=== PATIENT | male | born 1965 | race Caucasian/White ===

== ENCOUNTER 2016-04-25 08:20 | Day surgery (SDC) | payer OTHER ==
[2016-04-24 15:05] VITALS: BMI 24.3
[2016-04-25] MEDS ORDERED: mitoMYcin 40 MG/50 ML DISP.SYRIN (FOR OR USE) IC ONE (10:00)
[2016-04-25] MEDS ORDERED: MIDAZOLAM HCL 2 MG/2 ML SINGLE DOSE VIAL ONE (11:20)
[2016-04-25] MEDS ORDERED: PROPOFOL 20 ML ONE (11:20)
[2016-04-25] MEDS ORDERED: ceFAZolin SODIUM 1 GM VIAL IVPB ONE (11:34)
[2016-04-25] MEDS ORDERED: ceFAZolin SODIUM 1 GM VIAL ONE (11:36)
[2016-04-25] MEDS ORDERED: DEXAMETHASONE SOD PHOSPHATE 4 MG/1 ML VIAL ONE (11:42)
[2016-04-25] MEDS ORDERED: LIDOCAINE HCL 2% JELLY 10 ML CARTRIDGE TP ONE (11:50)
[2016-04-25] MEDS ORDERED: LIDOCAINE HCL 2% JELLY 10 ML CARTRIDGE ONE (11:57)
[2016-04-25] MEDS ORDERED: oxyCODONE HCL 5 MG TABLET PO PRN (12:04)
--- NOTE | 2016-04-25 12:04 | OP ---
Operative Note - Note: Operative Date: 04/25/16 Pre-Operative Diagnosis: bladder tumor-overlapping sites Operation: TURBT Findings: multiple papillar tumors Post-Operative Diagnosis: Same as Pre-op Surgeon: Angel Akers Anesthesia: General Specimens Removed: bladder tumor Drains & Tubes with Location: 20fr ignacio Operative Report Dictated: Yes
[2016-04-25] MEDS ORDERED: DEXTROSE 5%-0.45% SALINE 1,000 ML IV SCH (12:15)
[2016-04-25] MEDS ORDERED: ONDANSETRON 4 MG/2 ML VIAL IVPUSH PRN (12:34)
--- NOTE | 2016-04-25 12:39 | OP ---
DATE OF OPERATION: PREOPERATIVE DIAGNOSIS: Bladder tumor. POSTOPERATIVE DIAGNOSIS: Bladder tumor. PROCEDURE: Transurethral resection of bladder tumor followed by intravesical instillation of Mitomycin-C. SURGEON: Meg Montalvo MD INDICATION: The patient is a 50-year-old male with a history of recurrent bladder tumors. Recent revealed recurrence of several papillary tumors at the trigone, posterior wall, anterior wall so he was taken to the OR for resection. DESCRIPTION OF PROCEDURE: The patient was taken to the OR and placed supine on the operating room table. Cardiac monitoring was administered. General anesthesia was established. He was prepped and draped in the dorsal lithotomy position. The meatus was a little bit narrowed and required dilation with sounds in order to be able to advance a 24-sheath resectoscope with a visual obturator. After dilation, the scope was advanced into the anterior urethra then to the prostatic urethra into the bladder. Several papillary tumors were noted at the trigone, posterior wall, anterior wall, several on the anterior wall. These were resected in their entirety and sent to pathology for analysis. The base of all of the tumors were fulgurated. No other tumors were noted. Bilateral ureteral orifices were seen in their normal anatomic position with clear efflux. With all of the tumor removed now, resectoscope was then removed, and a 20-Sami Hernandez was then placed to straight drainage. Clear urine was retrieved. Then 40 mg of Mitomycin was instilled and the catheter clamped, and the patient was then transferred to the recovery room in stable condition. There were no complications. Estimated blood loss minimal. The plan is to unclamp the Hernandez after 1 hour in the recovery room. MEG MONTALVO M.D. [id number]
[2016-04-25] MEDS ORDERED: LACTATED RINGERS SOLUTION 1,000 ML IV SCH (12:45)
[2016-04-25 14:42] VITALS: TEMP 97.5
[2016-04-25 15:18] VITALS: BP 110/80; PULSE 60
== END 2016-04-25 14:55 | disposition home or self-care (01) ==
LOC: JASU-SURG 08:20
PROVIDERS: ATTEND Urology
PROC: 0TBB8ZZ Excision of Bladder, Via Natural or Artificial Opening Endoscopic (ICD-10-PCS; principal; 2016-04-25 10:00)
DX: D41.4 Neoplasm of uncertain behavior of bladder (principal)
CPT/HCPCS: 51720; 52224; J9280; 88307-TC; 94760

== ENCOUNTER 2018-02-19 07:27 | Day surgery (SDC) | payer OTHER ==
[2018-02-17 14:19] VITALS: BMI 23.7
[2018-02-19] MEDS ORDERED: MIDAZOLAM HCL 2 MG/2 ML SINGLE DOSE VIAL ONE (08:54)
[2018-02-19] MEDS ORDERED: PROPOFOL 20 ML ONE (08:58)
[2018-02-19] MEDS ORDERED: SUCCINYLCHOLINE CHLORIDE 200 MG/10 ML VIAL ONE (09:00)
[2018-02-19] MEDS ORDERED: ceFAZolin SODIUM 1 GM VIAL IVPB ONE (09:02)
[2018-02-19] MEDS ORDERED: oxyCODONE HCL 5 MG TABLET PO PRN ×2 (09:38→17:00)
--- NOTE | 2018-02-19 09:43 | OP ---
Operative Note - Note: Operative Date: 02/19/18 Pre-Operative Diagnosis: bladder tumor Operation: TURBT Post-Operative Diagnosis: Same as Pre-op Surgeon: Angel Akers Anesthesia: General Specimens Removed: bladder tumor Estimated Blood Loss (mls): 2 Operative Report Dictated: Yes
[2018-02-19] MEDS ORDERED: PROMETHAZINE HCL 25 MG/1 ML VIAL IVPUSH PRN (09:45)
[2018-02-19] MEDS ORDERED: ONDANSETRON 4 MG/2 ML VIAL IVPUSH PRN (09:45)
[2018-02-19] MEDS ORDERED: LACTATED RINGERS SOLUTION 1,000 ML IV SCH (09:45)
[2018-02-19] MEDS ORDERED: ELECTROLYTE-148 SOLN 1,000 ML IV SCH (09:45)
--- NOTE | 2018-02-19 10:42 | OP ---
DATE OF OPERATION: 02/19/2018 PREOPERATIVE DIAGNOSIS: Bladder tumor. POSTOPERATIVE DIAGNOSIS: Bladder tumor. PROCEDURE: Transurethral resection of bladder tumor. SURGEON: Angel Akers MD INDICATION: Patient is a 52-year-old male with a history of recurrent bladder tumors. Recent cystoscopy revealed evidence of bladder tumor on the posterior and left lateral wall. He is taken to the OR for resection of the tumor. Patient was taken to the OR, placed supine on the table. After cardiac monitoring administered general anesthesia was established. He was prepped and draped in dorsal supine position. The 26 sheath resectoscope was inserted into the urethra without difficulty. Anterior urethra was normal. Prostatic urethra was 3 cm, nonocclusive. The bladder was visualized. Erythematous lesions were noted at the posterior wall and left lateral wall. These were resected in their entirety and handed to Pathology for analysis. No other lesions were noted. Bilateral ureteral orifices were seen in their normal anatomic position. Resectoscope was then removed and an 18-E[place] Hernandez was then placed to straight drainage. [place]-tinged urine was retrieved. Patient was awoken from anesthesia and transferred to recovery in stable condition. There were no complications. Estimated blood loss was minimal. Veronica [id number]
[2018-02-19 12:38] VITALS: BP 132/64; PULSE 50; TEMP 97.4
--- NOTE | 2018-02-20 16:36 | PATH ---
Surgical Pathology Report Patient Name: DRAKE PINEDA [facility]. Rec. #: [id number] /Age/Gender: 1965 (Age: 52) / M Account: [id number] Location: [facility] SURGICAL Taken: 02/19/2018 Received: 02/19/2018 Reported: 02/20/2018 Physicians: Angel Akers M.D. Specimen(s) Received BLADDER TUMOR Clinical History Bladder tumor Final Diagnosis BLADDER TUMOR, TRANSURETHRAL RESECTION OF BLADDER TUMOR: POLYPOID FRAGMENTS OF BENIGN UROTHELIAL MUCOSA CONSISTENT WITH POLYPOID CYSTITIS. FRAGMENTS OF MUSCULARIS PROPRIA PRESENT. Electronically Signed Ivet Berry M.D. Gross Description Received in formalin labeled "bladder tumor," are 5 pink-kiser soft tissue fragments ranging from 0.2-0.7 cm in greatest dimension. The specimens are submitted in toto in one cassette. /02/19/2018 saudi02/19/2018
== END 2018-02-19 13:15 | disposition home or self-care (01) ==
LOC: JASU-SURG 07:27
PROVIDERS: ATTEND Urology
PROC: 0T5B8ZZ Destruction of Bladder, Via Natural or Artificial Opening Endoscopic (ICD-10-PCS; principal; 2018-02-19 09:00)
DX: N30.80 Other cystitis without hematuria (principal); D30.3 Benign neoplasm of bladder
CPT/HCPCS: 88305-TC; 94760

== ENCOUNTER 2018-09-16 04:04 | Inpatient (IN) | payer OTHER ==
[2018-09-16 05:20] LABS: MEAN PLT VOLUME 8.5 fl (7.5-11.1); RBC 4.85 M/mm3 (4.00-5.60)
[2018-09-16 05:30] LABS: HEMATOCRIT 42.2 % (35.4-49); HEMOGLOBIN 14.6 GM/dL (11.7-16.9); MCH 30.1 pg (25.7-33.7); MCHC 34.6 g/dl (32.0-35.9); MEAN CELL VOLUME 87.2 fl (80-96); PLATELET COUNT 241 K/MM3 (134-434); RDW 13.2 % (11.9-15.9); WHITE BLOOD COUNT 5.2 K/mm3 (4.0-10.0)
[2018-09-16 05:49] LABS: BILIRUBIN,TOTAL 0.3 mg/dL (0.2-1); BLOOD UREA NITROGEN 18.9 mg/dL (7-18); CREATININE 0.8 mg/dL (0.55-1.3); POTASSIUM 4.4 mmol/L (3.5-5.1); TOT PROT 7.3 g/dl (6.4-8.2)
[2018-09-16] MEDS ORDERED: SODIUM CHLORIDE 1,000 ML IV STA (06:35)
[2018-09-16] MEDS ORDERED: ACETAMINOPHEN INJECTION 100 ML IVPB ONE (06:39)
--- NOTE | 2018-09-16 06:39 | PDOC ---
History of Present Illness - History of Present Illness Initial Comments: 09/16/18 06:34 52 yo M with h/o bladder cancer who p/w hematuira, suprapubic pain. Patient reports acute onset of gross bright red urine (09/15/18) at 9 AM, with absent clotting. States that he was urinating every 2 hours at onset, but now every 20 minutes since ED stay. Patient also endorses 2 hours of unremitting sharp suprapubic pain. Reports similar history with onset of bladder cancer x 3 years ago. Denies AC use. Patient denies SHI, vision change, palpitations, cough, wheezing, orthopena, PND , leg swelling/pain, N/V, F,C, CP, SOB, BPR, diarrhea, constipation, lightheadedness, weakness, sensory changes. PMHx: as noted above ROS: as noted SHx: Denies Etoh, IVDA, tobacco use Allergies: NKDA <Juma Fox - Last Filed: 09/16/18 06:51> <Rj Benítez - Last Filed: 09/16/18 09:19> - General Chief Complaint: Hematuria Stated Complaint: BLOOD IN URINE Time Seen by Provider: 09/16/18 05:02 Past History - Past Medical History Anemia: No Asthma: No Cancer: No Cardiac Disorders: No CVA: No COPD: No CHF: No Dementia: No Diabetes: No GI Disorders: No Disorders: No HTN: No Hypercholesterolemia: Yes Liver Disease: No Seizures: No Thyroid Disease: No - Suicide/Smoking/Psychosocial Hx Smoking History: Never smoked Have you smoked in the past 12 months: No Information on smoking cessation initiated: No Hx Alcohol Use: Yes (Occasional) Drug/Substance Use Hx: No Hx Substance Use Treatment: No <Juma Fox - Last Filed: 09/16/18 06:51> <Rj Benítez - Last Filed: 09/16/18 09:19> - Past Medical History Allergies/Adverse Reactions: Allergies Allergy/AdvReac Type Severity Reaction Status Date / Time Iodinated Contrast- Oral and Allergy Severe Swelling Verified 09/16/18 04:57 IV Dye IV CONTRAST Allergy Severe Swelling Uncoded 09/16/18 04:57 Home Medications: Ambulatory Orders NK [No Known Home Medication] 04/24/16 Review of Systems - Review of Systems Comments:: 09/16/18 06:39 GENERAL/CONSTITUTIONAL: No fever or chills. No weakness. HEAD, EYES, EARS, NOSE AND THROAT: No change in vision. No ear pain or discharge. No sore throat. CARDIOVASCULAR: No chest pain or shortness of breath RESPIRATORY: No cough, wheezing, or hemoptysis. GASTROINTESTINAL: No nausea, vomiting, diarrhea or constipation. GENITOURINARY: + Hematuria, increased urination. MUSCULOSKELETAL: No joint or muscle swelling or pain. No neck or back pain. SKIN: No rash NEUROLOGIC: No headache, vertigo, loss of consciousness, or change in strength/ sensation. ENDOCRINE: No increased thirst. No abnormal weight change HEMATOLOGIC/LYMPHATIC: No anemia, easy bleeding, or history of blood clots. ALLERGIC/IMMUNOLOGIC: No hives or skin allergy. <Juma Fox - Last Filed: 09/16/18 06:51> *Physical Exam - Vital Signs Last Vital Signs Temp Pulse Resp BP Pulse Ox 97.8 F 66 17 162/99 99 09/16/18 04:04 09/16/18 04:04 09/16/18 04:04 09/16/18 04:04 09/16/18 04:04 - Physical Exam Comments: 09/16/18 06:38 GENERAL: Awake, alert, and fully oriented, in no acute distress HEAD: No signs of trauma, normocephalic, atraumatic EYES: PERRLA, EOMI, sclera anicteric, conjunctiva clear ENT: Auricles normal inspection, hearing grossly normal, nares patent, oropharynx clear without exudates. Moist mucosa NECK: Normal ROM, supple, no lymphadenopathy, JVD, or masses LUNGS: No distress, speaks full sentences, clear to auscultation bilaterally HEART: Regular rate and rhythm, normal S1 and S2, no murmurs, rubs or gallops, peripheral pulses normal and equal bilaterally. ABDOMEN: Soft, nontender, normoactive bowel sounds. No guarding, no rebound. No masses GENITOURINARY: Absent scrotal skin change, lesions, or testicular ttp. Absent penile discharge or lesions. Absent inguinal lymphadenopathy or bulge. Absent perineum skin change. EXTREMITIES : Normal inspection, Normal range of motion, no edema. No clubbing or cyanosis. NEUROLOGICAL: Cranial nerves II through XII grossly intact. Normal speech, normal gait, no focal sensorimotor deficits SKIN: Warm, Dry, normal turgor, no rashes or lesions noted <Juma Fox - Last Filed: 09/16/18 06:51> - Vital Signs Last Vital Signs Temp Pulse Resp BP Pulse Ox 97.8 F 66 17 162/99 99 09/16/18 04:04 09/16/18 04:04 09/16/18 04:04 09/16/18 04:04 09/16/18 04:04 <Rj Benítez - Last Filed: 09/16/18 09:19> ED Treatment Course - LABORATORY CBC & Chemistry Diagram: 09/16/18 05:11 09/16/18 05:11 - ADDITIONAL ORDERS Additional order review: Laboratory Results 09/16/18 09/16/18 05:11 05:11 Sodium 135 L Potassium 4.4 Chloride 103 Carbon Dioxide 28 Anion Gap 4 L BUN 18.9 H Creatinine 0.8 Est GFR (CKD-EPI)AfAm 119.04 Est GFR (CKD-EPI)NonAf 102.71 Random Glucose 119 H Calcium 9.0 Total Bilirubin 0.3 AST 19 ALT 34 Alkaline Phosphatase 52 Total Protein 7.3 Albumin 4.0 Urine Color Cancelled Urine Appearance Cancelled Urine pH Cancelled Ur Specific [place] Cancelled Urine Protein Cancelled Urine Glucose (UA) Cancelled Urine Ketones Cancelled Urine Blood Cancelled Urine Nitrite Cancelled Urine Bilirubin Cancelled Urine Urobilinogen Cancelled Ur Leukocyte Esterase Cancelled Urine WBC (Auto) Cancelled Urine RBC (Auto) Cancelled Urine Casts (Auto) Cancelled U Pathogenic Cast Auto Cancelled U Epithel Cells (Auto) Cancelled U Sm Round Cell (Auto) Cancelled Urine Crystals (Auto) Cancelled Urine Bacteria (Auto) Cancelled Urine Yeast (Auto) Cancelled 09/16/18 05:11 RBC 4.85 MCV 87.2 MCHC 34.6 RDW 13.2 MPV 8.5 <Juma Fox - Last Filed: 09/16/18 06:51> - LABORATORY CBC & Chemistry Diagram: 09/16/18 05:11 09/16/18 05:11 - ADDITIONAL ORDERS Additional order review: Laboratory Results 09/16/18 09/16/18 09/16/18 06:35 06:35 05:11 PT with INR 10.00 INR 0.85 Sodium Potassium Chloride Carbon Dioxide Anion Gap BUN Creatinine Est GFR (CKD-EPI)AfAm Est GFR (CKD-EPI)NonAf Random Glucose Calcium Total Bilirubin AST ALT Alkaline Phosphatase Total Protein Albumin Urine Color Cancelled Urine Appearance Cancelled Urine pH Cancelled Ur Specific [place] Cancelled Urine Protein Cancelled Urine Glucose (UA) Cancelled Urine Ketones Cancelled Urine Blood Cancelled Urine Nitrite Cancelled Urine Bilirubin Cancelled Urine Urobilinogen Cancelled Ur Leukocyte Esterase Cancelled Urine WBC (Auto) Cancelled Urine RBC (Auto) Cancelled Urine Casts (Auto) Cancelled U Pathogenic Cast Auto Cancelled U Epithel Cells (Auto) Cancelled U Sm Round Cell (Auto) Cancelled Urine Crystals (Auto) Cancelled Urine Bacteria (Auto) Cancelled Urine Yeast (Auto) Cancelled Blood Type A NEGATIVE Antibody Screen Negative 09/16/18 05:11 PT with INR INR Sodium 135 L Potassium 4.4 Chloride 103 Carbon Dioxide 28 Anion Gap 4 L BUN 18.9 H Creatinine 0.8 Est GFR (CKD-EPI)AfAm 119.04 Est GFR (CKD-EPI)NonAf 102.71 Random Glucose 119 H Calcium 9.0 Total Bilirubin 0.3 AST 19 ALT 34 Alkaline Phosphatase 52 Total Protein 7.3 Albumin 4.0 Urine Color Urine Appearance Urine pH Ur Specific [place] Urine Protein Urine Glucose (UA) Urine Ketones Urine Blood Urine Nitrite Urine Bilirubin Urine Urobilinogen Ur Leukocyte Esterase Urine WBC (Auto) Urine RBC (Auto) Urine Casts (Auto) U Pathogenic Cast Auto U Epithel Cells (Auto) U Sm Round Cell (Auto) Urine Crystals (Auto) Urine Bacteria (Auto) Urine Yeast (Auto) Blood Type Antibody Screen 09/16/18 05:11 RBC 4.85 MCV 87.2 MCHC 34.6 RDW 13.2 MPV 8.5 - RADIOLOGY Radiology Studies Ordered: Category Date Time Status CHEST - PA [RAD] Stat Radiology 09/16/18 07:37 Ordered - Medications Given in the ED: ED Medications Discontinued Medications Generic Name Dose Route Start Last Admin Trade Name Freq PRN Reason Stop Dose Admin Acetaminophen 1,000 mg 09/16/18 06:36 09/16/18 06:45 Ofirmev Injection - IVPB 09/16/18 06:37 1,000 mg ONCE ONE Administration Sodium Chloride 1,000 mls @ 1,000 mls/hr 09/16/18 06:35 09/16/18 06:45 Normal Saline - IV 09/16/18 07:34 1,000 mls/hr ASDIR STA Administration Morphine Sulfate 2 mg 09/16/18 08:23 09/16/18 08:25 Morphine Injection - IVPUSH 09/16/18 08:24 2 mg ONCE ONE Administration <Rj Benítez - Last Filed: 09/16/18 09:19> Medical Decision Making - Medical Decision Making 09/16/18 06:37 52 yo M with h/o bladder cancer who p/w hematuira, suprapubic pain beginning 9: 00 PM (09/15/18). BP 162/99, vitals otherwise wnl, AF, A&OX3. Physical exam notable for surpapubic ttp. Patient with unremitting hematuria at bedside. Patient denies AC use. Will evaluate for acute blood loss anemia requiring transfusions. Bleeding likely 2/[address] ignacio, provide adequate analgesic and fluid hydration/control. Plan for admission, CBI. ED Course: Call placed to Dr. Akers answering service Awaiting call back 09/16/18 06:[address] Aceves, agrees with dispo. Plan for CBI if bleeding continously. <Juma Fox - Last Filed: 09/16/18 06:51> *DC/Admit/Observation/Transfer - Discharge Dispostion Decision to Admit order: Yes <Juma Fox - Last Filed: 09/16/18 06:51> - Discharge Dispostion Decision to Admit order: Yes <Rj Benítez - Last Filed: 09/16/18 09:19> Diagnosis at time of Disposition: Hematuria Qualifiers: Hematuria type: gross Qualified Code(s): R31.0 - Gross hematuria - Discharge Dispostion Condition at time of disposition: Fair - Referrals Referrals: Angel Akers MD [Primary Care Provider] - - Patient Instructions - Post Discharge Activity
[2018-09-16] MEDS: ACETAMINOPHEN 1000 MG/100 ML VIAL (NON FORMULARY) IVPB ONE (06:45)
[2018-09-16 07:00] LABS: INR 0.85 (0.83-1.09)
[2018-09-16] MEDS ORDERED: MORPHINE SULFATE 2 MG/ML VIAL ONE (08:19)
[2018-09-16] MEDS ORDERED: morphine CARPU-JECT 2 MG/1 ML DISP.SYRIN IVPUSH ONE (08:23)
--- NOTE | 2018-09-16 08:36 | HP ---
CHIEF COMPLAINT: PCP: Dr. Oliver Nash Urology: Dr. Akers HISTORY OF PRESENT ILLNESS: The patient is a 52 yo m w/ PMH bladder Ca (dx apr 2015), HLD who comes into the ED c/o hematuria. Patient states that at approx. PM yesterday evening, he first noticed blood in his urine. Since this time, hehad been urinating every 2 hours and seeing blood every time. The patient associated this symptom with burning on urination for the same period of time. After arrival in the ED, the patient states that he began to urinate every 20 minutes and developed a constant, sharp suprapubic pain without radiation. The patient states that he had a similar episode in 2015 when he was first diagnosed with bladder cancer. Patient denies fevers, chills, SOB, diarrhea. In the ED, the patient was treated with IV acetaminophen and a [address] catheter was inserted. Urology was consulted from the emergency department. They agreed the with above plan and suggested starting CBI if bleeding persisted. On interview, the patient c/o increased suprapubic pain. Palpation of the abdomen found the bladder to be distended above the level of the umbilicus. Esteban was not draining. Catheter was found to be occluded by a presumed clot in the bladder. repeated flushing and irrigating through 2 different lumen were unsuccessful. Contacted Dr. Aceves, who recommended replacing [address]eban with [address]eban. This was done, and the patient endorsed relief of his symptoms. new Esteban was draining sanguineous urine. Recent Travel: none PAST MEDICAL HISTORY: see HPI PAST SURGICAL HISTORY: multiple resections of bladder tumors; most recent 3 weeks ago Social History: Smoking: denies Alcohol: denies Drugs: denies Family History: Father: HTN Mother: DM Brother: DM Allergies Iodinated Contrast- Oral and IV Dye Allergy (Severe, Verified 09/16/18 04:57) Swelling HAD RECATION WITH IV CONTRAST, NEVER TRIED ORAL CONTRAST IV CONTRAST Allergy (Severe, Uncoded 09/16/18 04:57) Swelling HOME MEDICATIONS: Home Medications Medication Instructions Recorded NK [No Known Home Medication] 04/24/16 REVIEW OF SYSTEMS Negative except for HPI PHYSICAL EXAMINATION Vital Signs - 24 hr 09/16/18 04:04 Temperature 97.8 F Pulse Rate 66 Respiratory 17 Rate Blood Pressure 162/99 O2 Sat by Pulse 99 Oximetry (%) GENERAL: Awake, alert, and fully oriented, in no acute distress. HEAD: Normal with no signs of trauma. EYES: Pupils equal, round and reactive to light, extraocular movements intact, sclera anicteric, conjunctiva clear. No lid lag. LUNGS: Breath sounds equal, clear to auscultation bilaterally. No wheezes, and no crackles. No accessory muscle use. HEART: Regular rate and rhythm, normal S1 and S2 without murmur, rub or gallop. ABDOMEN: Prior to esteban replacement: abdomen distended and firm with fundus of the bladder felt above the level of the umbilicus. Exquisite tenderness to palpation. After esteban replacement: Abdomen nondistended and soft. bladder cannot be palpated. moderate suprapubic tenderness to palpation. LOWER EXTREMITIES: 2+ pulses, warm, well-perfused. No calf tenderness. No peripheral edema. NEUROLOGICAL: Cranial nerves II-X intact. Normal speech. PSYCHIATRIC: Cooperative. Good eye contact. Appropriate mood and affect. SKIN: Warm, dry, normal turgor, no rashes or lesions noted, normal capillary refill. Laboratory Results - last 24 hr 09/16/18 09/16/18 09/16/18 05:11 05:11 05:11 WBC 5.2 RBC 4.85 Hgb 14.6 Hct 42.2 MCV 87.2 MCH 30.1 MCHC 34.6 RDW 13.2 Plt Count 241 MPV 8.5 PT with INR INR Sodium 135 L Potassium 4.4 Chloride 103 Carbon Dioxide 28 Anion Gap 4 L BUN 18.9 H Creatinine 0.8 Est GFR (CKD-EPI)AfAm 119.04 Est GFR (CKD-EPI)NonAf 102.71 Random Glucose 119 H Calcium 9.0 Total Bilirubin 0.3 AST 19 ALT 34 Alkaline Phosphatase 52 Total Protein 7.3 Albumin 4.0 Urine Color Cancelled Urine Appearance Cancelled Urine pH Cancelled Ur Specific [place] Cancelled Urine Protein Cancelled Urine Glucose (UA) Cancelled Urine Ketones Cancelled Urine Blood Cancelled Urine Nitrite Cancelled Urine Bilirubin Cancelled Urine Urobilinogen Cancelled Ur Leukocyte Esterase Cancelled Urine WBC (Auto) Cancelled Urine RBC (Auto) Cancelled Urine Casts (Auto) Cancelled U Pathogenic Cast Auto Cancelled U Epithel Cells (Auto) Cancelled U Sm Round Cell (Auto) Cancelled Urine Crystals (Auto) Cancelled Urine Bacteria (Auto) Cancelled Urine Yeast (Auto) Cancelled Blood Type Antibody Screen 09/16/18 09/16/18 06:35 06:35 WBC RBC Hgb Hct MCV MCH MCHC RDW Plt Count MPV PT with INR 10.00 INR 0.85 Sodium Potassium Chloride Carbon Dioxide Anion Gap BUN Creatinine Est GFR (CKD-EPI)AfAm Est GFR (CKD-EPI)NonAf Random Glucose Calcium Total Bilirubin AST ALT Alkaline Phosphatase Total Protein Albumin Urine Color Urine Appearance Urine pH Ur Specific [place] Urine Protein Urine Glucose (UA) Urine Ketones Urine Blood Urine Nitrite Urine Bilirubin Urine Urobilinogen Ur Leukocyte Esterase Urine WBC (Auto) Urine RBC (Auto) Urine Casts (Auto) U Pathogenic Cast Auto U Epithel Cells (Auto) U Sm Round Cell (Auto) Urine Crystals (Auto) Urine Bacteria (Auto) Urine Yeast (Auto) Blood Type A NEGATIVE Antibody Screen Negative ASSESSMENT/PLAN: The patient is a 52 yo m w/ PMH bladder Ca (dx apr 2015) who comes into the ED c /o hematuria. #Hematuria and suprapubic abdominal pain 2/2 bleeding bladder mass -Urology consulted; aware of patient and will evaluate for further, definitive treatment. -Patient w/ Hb 14.6. will repeat CBC at 12pm to monitor for Hb drop -transfuse according to normal thresholds -NPO for possible procedure -holding AC while actively bleeding -Morphine 2mg Q6h #Acute urinary retention likely 2/2 Esteban occlusion w/ clots vs. mechanical occlusion with tumor vs neurogenic bladder 2/2 multiple recent instrumentations. -24fr. three way Esteban replaced with a 24fr. two way Esteban as per urology -patient Esteban now draining well -Patient's ssx improved after replacement of Esteban -monitor pt for signs of re-occlusion -await urological input #FEN -no fluids indicated -lytes WNL -NPO for possible procedure. #Prophy -holding AC in bleeding -SCDs b/l #Dispo -admit med surg -home medications verified with the patient. Visit type - Emergency Visit Emergency Visit: Yes ED Registration Date: 09/16/18 Care time: The patient presented to the Emergency Department on the above date and was hospitalized for further evaluation of their emergent condition. - New Patient This patient is new to me today: Yes Date on this admission: 09/16/18 - Critical Care Critical Care patient: No
[2018-09-16] MEDS ORDERED: MORPHINE SULFATE 2 MG/ML VIAL IVPUSH PRN (09:33)
--- NOTE | 2018-09-16 12:27 | EKG ---
Test Reason : Blood Pressure : / mmHG Vent. Rate : 061 BPM Atrial Rate : 061 BPM P-R Int : 164 ms QRS Dur : 070 ms QT Int : 410 ms P-R-T Axes : 025 049 043 degrees QTc Int : 412 ms NORMAL SINUS RHYTHM NORMAL ECG NO PREVIOUS ECGS AVAILABLE Confirmed by ANUSHA BOWDEN, RAINA ([id number]) on 09/16/2018 12:26:40 PM Referred By: Confirmed By:RAINA TAVARES MD
--- NOTE | 2018-09-16 14:32 | CON.GU ---
Consult Consult Specialty:: Urology Referred by:: ER Reason for Consultation:: Gross hematuria - History of Present Illness Chief Complaint: Gross Hematuria History of Present Illness: 52 yo male w hx of Bladder tumor(CIS) s/p recent resection dev gross hematuria x 48 hrs Ignacio to sd draining clear urine pt awaiting intravesc therapy - Alcohol/Substance Use Hx Alcohol Use: Yes (Occasional) - Smoking History Smoking history: Never smoked Have you smoked in the past 12 months: No Home Medications - Allergies Allergies/Adverse Reactions: Allergies Allergy/AdvReac Type Severity Reaction Status Date / Time Iodinated Contrast- Oral and Allergy Severe Swelling Verified 09/16/18 04:57 IV Dye IV CONTRAST Allergy Severe Swelling Uncoded 09/16/18 04:57 - Home Medications Home Medications: Ambulatory Orders NK [No Known Home Medication] 04/24/16 Physical Exam- Vital Signs: Vital Signs Temperature 97.9 F 09/16/18 10:11 Pulse Rate 58 L 09/16/18 10:11 Respiratory Rate 20 09/16/18 10:11 Blood Pressure 131/86 09/16/18 10:11 O2 Sat by Pulse Oximetry (%) 98 09/16/18 10:11 Constitutional: Yes: Well Nourished Eyes: Yes: WNL HENT: Yes: WNL Neck: Yes: WNL Cardiovascular: Yes: Regular Rate and Rhythm Respiratory: Yes: WNL Gastrointestinal: Yes: Normal Bowel Sounds, Soft Renal/: Yes: WNL Kidneys: Yes: WNL Pelvis: Yes: Bladder Non Palpable Labs: CBC, BMP 09/16/18 05:11 09/16/18 05:11 Assessment/Plan 52 yo male s/p recent BT resection now w gross hematuria 24 Fr ignacio draining well pink urine Bladder irrigated w 2 l NS draining well minimal clotts Hct 42 Will give to am w ignacio to sd Consider cystoscopy w fulguration if heamaturic in am
--- NOTE | 2018-09-16 14:47 | PN ---
Teaching Attending Note Name of Resident: Aung Wagner ATTENDING PHYSICIAN STATEMENT I saw and evaluated the patient. I reviewed the resident's note and discussed the case with the resident. I agree with the resident's findings and plan as documented. SUBJECTIVE:52yo M with PMH dyslipidemia and bladder cancer dx 2016 with multiple resections and most recent 3 weeks ago presenting with hematuria. has been having some pinkish tinged urine for 2 days after and then cleared. started having hematuria on friday which persisted and started passing clots last night. at first every few hours and then was every 15 mins causing excruciating pain. assoc with suprapubic pain. also notes clots passage. some relief when ignacio was 3 way ignacio was placed but then was noted to not be flowing well and switched to 24fr ignacio. denies Cp, SOB, fever, chills, N/V/C/D , not on blood thinners just completed abx that was given prophylatically for the procedure OBJECTIVE: Last Vital Signs Temp Pulse Resp BP Pulse Ox 97.9 F 58 L 20 131/86 98 09/16/18 10:11 09/16/18 10:11 09/16/18 10:11 09/16/18 10:11 09/16/18 10:11 General NAD CV S1 s2 RRR no murmur/rub/gallop Lung CTA B/L no wheezing/rales/rhonchi Abdomen soft +suprapubic tenderness no rebound or guarding Extremities no pedal edema ASSESSMENT AND PLAN: 52yo M with PMH dyslipidemia and bladder cancer dx 2016 s/p multiple bladder resections with most recent 3 weeks ago present with hematuria and urine retention 1. Hematuria- could be related to recent procedure vs progression of disease. plan was to start CBI however ignacio clotted and ignacio switched out. continues to have bright maroon urine. will order repeat CBC with iron studies. transfusion as needed. urology on board 2. urine retention- due to obstruction from clots vs progression of disease. ignacio irrigated with relief of obstruction. stone monitor UOP. monitor renal function 3. Elevated BP- liekly due to pain. now improved. will monitor. consider starting medications if persists 4. dyslipidemia- diet controlled 5. DVT ppx- scd. would hold pharmacologic in setting of active bleeding
[2018-09-16 17:12] VITALS: BMI 22.1
[2018-09-16 20:18] LABS: HEMATOCRIT 37.6 % (35.4-49); HEMOGLOBIN 12.7 GM/dL (11.7-16.9); MCH 29.7 pg (25.7-33.7); MCHC 33.9 g/dl (32.0-35.9); MEAN CELL VOLUME 87.6 fl (80-96); MEAN PLT VOLUME 8.9 fl (7.5-11.1); PLATELET COUNT 204 K/MM3 (134-434); RBC 4.29 M/mm3 (4.00-5.60); RDW 13.2 % (11.9-15.9); WHITE BLOOD COUNT 7.3 K/mm3 (4.0-10.0)
--- NOTE | 2018-09-16 23:46 | PDOC ---
Documentation entered by Alek Thomas SCRIBE, acting as scribe for Demi Smyth DO. Demi Smyth DO: This documentation has been prepared by the William barillas Daniel, SCRIBE, under my direction and personally reviewed by me in its entirety. I confirm that the documentation accurately reflects all work , treatment, procedures, and medical decision making performed by me. Attending Attestation - Resident Resident Name: Juma Fox - ED Attending Attestation I have performed the following: I have examined & evaluated the patient, The case was reviewed & discussed with the resident, I agree w/resident's findings & plan - HPI HPI: 09/16/18 06:08 The patient is a 52 year old male with a past medical history of bladder cancer s/p multiple resections with recurrence here today for evaluation of hematuria. The patient reports that he has been having gross hematuria since 9 PM last night. He notes that it was every 2 hours at home but is now every 20 minutes in the ED. He also notes suprapubic pain. Patient denies headache, lightheadedness. Denies fever, chills. Denies chest pain, shortness of breath. Denies nausea, vomiting, diarrhea. Allergies: iodinated contrast oral and IV dye Urologist: Angel Akers - Physicial Exam PE: 09/16/18 06:08 Agree with the patient's physical exam. - Medical Decision Making 09/16/18 23:45 52-year-old male with history of bladder cancer now with gross hematuria 3-way Hernandez placed due to urinary retention likely secondary to clots Call placed to urology Plan for CBI and admission to medical service
[2018-09-17 08:19] LABS: HEMOGLOBIN 12.6 GM/dL (11.7-16.9); MEAN PLT VOLUME 8.8 fl (7.5-11.1); PLATELET COUNT 196 K/MM3 (134-434); RBC 4.21 M/mm3 (4.00-5.60); RDW 13.1 % (11.9-15.9); WHITE BLOOD COUNT 6.1 K/mm3 (4.0-10.0)
[2018-09-17 08:38] LABS: ALBUMIN 3.4 g/dl (3.4-5.0); BILIRUBIN,TOTAL 0.5 mg/dL (0.2-1); BLOOD UREA NITROGEN 10.8 mg/dL (7-18); CALCIUM 8.4 mg/dL (8.5-10.1); CREATININE 0.7 mg/dL (0.55-1.3); MAGNESIUM 2.4 mg/dL (1.8-2.4); PHOSPHOROUS 2.9 mg/dL (2.5-4.9); POTASSIUM 4.4 mmol/L (3.5-5.1); TOT PROT 6.2 g/dl (6.4-8.2)
[2018-09-17] MEDS ORDERED: CEFAZOLIN 2 GM/D5W 2 GM/50 ML ML IVPB ONE (08:50)
[2018-09-17] MEDS ORDERED: GENTAMICIN SO4 80 MG/2 ML VIAL ONE (09:34)
[2018-09-17] MEDS ORDERED: MIDAZOLAM HCL 2 MG/2 ML SINGLE DOSE VIAL ONE (09:34)
[2018-09-17] MEDS ORDERED: GENTAMICIN 80MG PREMIX BAG IVPB ONE (09:42)
[2018-09-17] MEDS ORDERED: ONDANSETRON 4 MG/2 ML VIAL IVPUSH PRN (10:07)
[2018-09-17] MEDS ORDERED: LACTATED RINGERS SOLUTION 1,000 ML IV SCH (10:15)
--- NOTE | 2018-09-17 10:29 | OP ---
Operative Note - Note: Operative Date: 09/17/18 Pre-Operative Diagnosis: gross hematuria/clot retention Operation: cysto/evac of clots/fulg of bleeding Post-Operative Diagnosis: Same as Pre-op Anesthesia: General Specimens Removed: clots Estimated Blood Loss (mls): 10 Drains & Tubes with Location: 22fr ignacio
[2018-09-17 10:56] LABS: PH,URINE 6.5 (5.0-8.0); URINE APPEARANCE Cloudy; URINE BILIRUBIN 1+ (NEGATIVE); URINE COLOR Red; URINE GLUCOSE (UA) Negative (NEGATIVE); URINE KETONE Trace (NEGATIVE); URINE LEUK ESTERASE Trace (NEGATIVE); URINE NITRITE Positive (NEGATIVE); URINE PROTEIN 3+ (NEGATIVE)
[2018-09-17 10:58] LABS: URINE RBC 4462.2 /hpf (0-4); URINE WBC 17.4 /hpf (0-5)
[2018-09-17 10:59] LABS: EPI CELLS 1.3 /HPF (0-5/HPF); HYALINE CASTS 5.63 /lpf (0-8); URINE BACTERIA 0.3 /hpf (NEGATIVE)
[2018-09-17] MEDS ORDERED: ACETAMINOPHEN INJECTION 100 ML IVPB ONE (11:00)
[2018-09-17] MEDS: ACETAMINOPHEN 1000 MG/100 ML VIAL (NON FORMULARY) IVPB ONE (11:05)
--- NOTE | 2018-09-17 11:26 | PN ---
Physical Exam: SUBJECTIVE: Patient seen and examined at bedside. No acute events overnight. Pt OBJECTIVE: Vital Signs Temperature 97.5 F L 09/17/18 10:39 Pulse Rate 62 09/17/18 10:39 Respiratory Rate 16 09/17/18 10:39 Blood Pressure 125/82 09/17/18 10:39 O2 Sat by Pulse Oximetry (%) 97 09/17/18 10:39 GENERAL: Awake, alert, and fully oriented, in no acute distress. HEENT: AT/NC. Moist mucus membranes. Facial symmetry noted. LUNGS: CTA B/L. No wheezes, rhonchi, rales noted. HEART: RRR. Normal S1, S2. No murmurs noted. ABDOMEN: Soft, NT/ND. No masses, rebound tenderness, guarding. : Ignacio in place draining dark maroon urine. No suprapubic tenderness. LOWER EXTREMITIES: 2+ pulses, warm, well-perfused. No calf tenderness. No peripheral edema. NEUROLOGICAL: Cranial nerves II-X intact. Normal speech. PSYCHIATRIC: Cooperative. Good eye contact. Appropriate mood and affect. SKIN: Warm, dry, normal turgor, no rashes or lesions noted, normal capillary refill. CBCD WBC 6.1 K/mm3 (4.0-10.0) 09/17/18 07:30 RBC 4.21 M/mm3 (4.00-5.60) 09/17/18 07:30 Hgb 12.6 GM/dL (11.7-16.9) 09/17/18 07:30 Hct 37.0 % (35.4-49) 09/17/18 07:30 MCV 88.0 fl (80-96) 09/17/18 07:30 MCHC 34.0 g/dl (32.0-35.9) 09/17/18 07:30 RDW 13.1 % (11.9-15.9) 09/17/18 07:30 Plt Count 196 K/MM3 (134-434) 09/17/18 07:30 MPV 8.8 fl (7.5-11.1) 09/17/18 07:30 CMP Sodium 142 mmol/L (136-145) 09/17/18 07:30 Potassium 4.4 mmol/L (3.5-5.1) 09/17/18 07:30 Chloride 107 mmol/L (98-107) 09/17/18 07:30 Carbon Dioxide 28 mmol/L (21-32) 09/17/18 07:30 Anion Gap 6 MMOL/L (8-16) L 09/17/18 07:30 BUN 10.8 mg/dL (7-18) 09/17/18 07:30 Creatinine 0.7 mg/dL (0.55-1.3) 09/17/18 07:30 Calcium 8.4 mg/dL (8.5-10.1) L 09/17/18 07:30 Total Bilirubin 0.5 mg/dL (0.2-1) 09/17/18 07:30 AST 11 U/L (15-37) L 09/17/18 07:30 ALT 28 U/L (13-61) 09/17/18 07:30 Alkaline Phosphatase 46 U/L (45-117) 09/17/18 07:30 Total Protein 6.2 g/dl (6.4-8.2) L 09/17/18 07:30 Albumin 3.4 g/dl (3.4-5.0) 09/17/18 07:30 Active Medications Generic Name Dose Route Start Last Admin Trade Name Freq PRN Reason Stop Dose Admin Lactated Ringer's 1,000 mls @ 75 mls/hr 09/17/18 10:58 Lactated Ringers Solution IV ASDIR [facility] ASSESSMENT/PLAN: 52M w/ PMH bladder Ca (dx apr 2015) who comes into the ED c/o hematuria. #Hematuria and Suprapubic abdominal pain 2/2 bleeding bladder mass (Pt has hx of bladder cancer with multiple resections in the past) -Per uro, cystoscopy/removal of clots/fulguration today in OR; await further recs of CBI needed -Hold AC in setting of active bleeding -Morphine 2mg Q6h for pain as needed #Acute urinary retention; likely 2/2 Ignacio occlusion w/ clots vs. mechanical occlusion with tumor vs neurogenic bladder 2/2 multiple recent instrumentations -Pt with ignacio, irrigated overnight with success in relieving obstruction. -Cont to monitor pt for signs of re-occlusion -await urological input #HLD; Stable and diet-controlled. #FEN -LR @ 75 -lytes WNL -Regular diet #Ppx DVT: Hold AC, SCDs Dispo -cont to monitor on med-surg -home medications verified with the patient Visit type - Emergency Visit Emergency Visit: Yes ED Registration Date: 09/16/18 Care time: The patient presented to the Emergency Department on the above date and was hospitalized for further evaluation of their emergent condition. - New Patient This patient is new to me today: Yes Date on this admission: 09/17/18 - Critical Care Critical Care patient: No
--- NOTE | 2018-09-17 13:34 | PN ---
Teaching Attending Note Name of Resident: Tanya Cartagena ATTENDING PHYSICIAN STATEMENT I saw and evaluated the patient. I reviewed the resident's note and discussed the case with the resident. I agree with the resident's findings and plan as documented. SUBJECTIVE:pt was not seen as he was in the OR OBJECTIVE: Last Vital Signs Temp Pulse Resp BP Pulse Ox 97.8 F 56 L 18 112/70 99 09/17/18 13:01 09/17/18 13:01 09/17/18 13:01 09/17/18 13:09/17/18 13:01 ASSESSMENT AND PLAN: 52yo M with PMH dyslipidemia and bladder cancer dx 2016 s/p multiple bladder resections with most recent 3 weeks ago present with hematuria and urine retention 1. Hematuria- could be related to recent procedure vs progression of disease. informed he is continuing to have hematuria with passage of clots. in OR for cystoscopy. will f/u plan from urologist. Hgb is now stable. trend hgb. transfusion as needed. urology on board 2. urine retention- due to obstruction from clots vs progression of disease. ignacio irrigated with relief of obstruction. stone monitor UOP. monitor renal function 3. Elevated BP- liekly due to pain. now improved. will monitor. consider starting medications if persists 4. dyslipidemia- diet controlled 5. DVT ppx- scd. would hold pharmacologic in setting of active bleeding
[2018-09-17 13:49] LABS: HEMATOCRIT 37.5 % (35.4-49); HEMOGLOBIN 12.7 GM/dL (11.7-16.9); MCH 29.5 pg (25.7-33.7); MCHC 33.8 g/dl (32.0-35.9); MEAN CELL VOLUME 87.3 fl (80-96); MEAN PLT VOLUME 8.6 fl (7.5-11.1); PLATELET COUNT 200 K/MM3 (134-434); RBC 4.29 M/mm3 (4.00-5.60); RDW 13.2 % (11.9-15.9); WHITE BLOOD COUNT 8.7 K/mm3 (4.0-10.0)
--- NOTE | 2018-09-17 15:25 | OP ---
DATE OF OPERATION: DATE OF DICTATION: 09/17/2018 PREOPERATIVE DIAGNOSES: Gross hematuria and clot retention. POSTOPERATIVE DIAGNOSES: Gross hematuria and clot retention. PROCEDURE: Cystoscopy, evacuation of clots, fulguration of bleeding. SURGEON: Meg Montalvo MD INDICATION: Patient is a 52-year-old male with history of recurrent bladder tumor, recently had a bladder tumor resection approximately 2 weeks ago, now admitted with gross hematuria and clot retention. Due to persistent hematuria, he was taken to the OR for cystoscopy, evacuation of clots, and fulguration of bleeding. After informed consent was obtained and the risks and benefits were discussed, of bleeding, infection, recurrent hematuria, potential injury to adjacent organs, as well as known recurrence of cancer, he was taken to the OR for the procedure. Patient was taken to the OR, supine on the operating table. After cardiac monitoring administered, general anesthesia was established. He was prepped and draped in dorsal lithotomy position. He was given 1 g of Ancef and 80 of gentamicin. At this point, the resectoscope was inserted into the urethra without difficulty. Anterior urethra was normal. The prostatic urethra was 3 cm and visually occlusive. The bladder was visualized. The bladder revealed multiple clots. Using the Ellik evacuator, the large amount of clots was evacuated. With all the clots gone, it was evident that the bleeding was coming from the prior transurethral resection site on the patient's anterior bladder wall. Using the bipolar electrode, all the prior resection site was re-fulgurated until there was no evidence of any active bleeding. Resectoscope was then removed. Bilateral ureteral orifices were seen in their normal anatomic position with clear efflux. Resectoscope was then removed, and a 22-Maori Hernandez was then placed to straight drainage. Clear urine was retrieved. The patient was awoken from anesthesia and transferred to recovery room in stable condition. There were no complications. Estimated blood loss was 0. MEG MONTALVO M.D. [id number]
[2018-09-17] MEDS: LACTATED RINGERS SOLUTION 1,000 ML IV SCH (15:35)
[2018-09-18] MEDS: LACTATED RINGERS SOLUTION 1,000 ML IV SCH ×2 (06:02→12:10)
[2018-09-18 07:05] LABS: HEMATOCRIT 35.9 % (35.4-49); HEMOGLOBIN 12.4 GM/dL (11.7-16.9); MCH 30.2 pg (25.7-33.7); MCHC 34.6 g/dl (32.0-35.9); MEAN CELL VOLUME 87.4 fl (80-96); MEAN PLT VOLUME 8.5 fl (7.5-11.1); RBC 4.11 M/mm3 (4.00-5.60); RDW 13.4 % (11.9-15.9); WHITE BLOOD COUNT 5.3 K/mm3 (4.0-10.0)
[2018-09-18 07:27] LABS: CALCIUM 8.3 mg/dL (8.5-10.1); CREATININE 2.6 mg/dL (0.55-1.3); POTASSIUM 4.1 mmol/L (3.5-5.1)
[2018-09-18 07:58] LABS: PLATELET COUNT 181 K/MM3 (134-434)
[2018-09-18 08:06] LABS: SERUM IRON SATURATION 13 % (15-55); TOTAL IRON BINDING CAPACITY 312 ug/dL (250-450)
[2018-09-18] MEDS ORDERED: LACTATED RINGERS SOLUTION 1,000 ML/1,000 ML INFUS.BAG IV STA (10:10)
--- NOTE | 2018-09-18 10:33 | PN ---
Teaching Attending Note Name of Resident: Tanya Cartagena ATTENDING PHYSICIAN STATEMENT I saw and evaluated the patient. I reviewed the resident's note and discussed the case with the resident. I agree with the resident's findings and plan as documented. SUBJECTIVE:some suprapubic discomfort when sitting up. no passage of blood clots. denies Cp, SOB, fevr, chills, n/v/c/d OBJECTIVE: Last Vital Signs Temp Pulse Resp BP Pulse Ox 97.7 F 60 20 137/87 99 09/18/18 09:39 09/18/18 09:39 09/18/18 09:39 09/18/18 09:39 09/17/18 21:00 General NAD Lungs CTA B/L no wheezing/rales/rhonchi ASSESSMENT AND PLAN: 52yo M with PMH dyslipidemia and bladder cancer dx 2015 s/p multiple bladder resections with most recent 3 weeks ago present with hematuria and urine retention 1. Hematuria- could be related to recent procedure vs progression of disease. s/ p cystoscopy with evacuation of clots/fulg of bleeding 09/17. urine now clear in ignacio. hgb stable. will f/u urology if plan is for patient to leave with ignacio or trial of void. urology on board 2. urine retention- due to obstruction from clots vs progression of disease.s/p cysto with evacuation of clots. no signs of retention 3. SUSHMA- due to obstruction. will start some IVF. monitor UOP. avoid nephrotoxic agents. monitor renal function 3. Elevated BP- liekly due to pain. now improved. will monitor. consider starting medications if persists 4. dyslipidemia- diet controlled 5. DVT ppx- scd. would hold pharmacologic in setting of active bleeding 6. would monitor patient in setting of newly developed SUSHMA. will d/c once note improving renal function
--- NOTE | 2018-09-18 10:53 | PN ---
Physical Exam: SUBJECTIVE: Patient seen and examined at bedside. No acute events overnight. Pt seen comfortable. Only complaint is suprapubic pressure upon sitting upright. Ignacio draining clear yellow urine. Denies, f/c, n/v, abd pain, bowel symptoms. OBJECTIVE: Vital Signs Temperature 97.7 F 09/18/18 09:39 Pulse Rate 60 09/18/18 09:39 Respiratory Rate 20 09/18/18 09:39 Blood Pressure 137/87 09/18/18 09:39 O2 Sat by Pulse Oximetry (%) 99 09/17/18 21:00 GENERAL: Awake, alert, and fully oriented, in no acute distress. HEENT: AT/NC. Moist mucus membranes. Facial symmetry noted. LUNGS: CTA B/L. No wheezes, rhonchi, rales noted. HEART: RRR. Normal S1, S2. No murmurs noted. ABDOMEN: Soft, NT/ND. No masses, rebound tenderness, guarding. : Ignacio in place draining dark maroon urine. No suprapubic tenderness. LOWER EXTREMITIES: 2+ pulses, warm, well-perfused. No calf tenderness. No peripheral edema. NEUROLOGICAL: Cranial nerves II-X intact. Normal speech. PSYCHIATRIC: Cooperative. Good eye contact. Appropriate mood and affect. SKIN: Warm, dry, normal turgor, no rashes or lesions noted, normal capillary refill. CBC, BMP 09/18/18 06:25 09/18/18 06:25 Active Medications Lactated Ringer's (Lactated Ringers Solution) 1,000 mls @ 75 mls/hr IV ASDIR JADIEL Last Admin: 09/18/18 06:02 Dose: 75 mls/hr Lactated Ringer's (Lactated Ringers Solution) 1,000 ml in 1,000 mls @ 1,000 mls /hr IV ONCE STA Stop: 09/18/18 11:09 Last Admin: 09/18/18 10:31 Dose: 1,000 mls/hr ASSESSMENT/PLAN: 52M w/ PMH bladder Ca (dx apr 2015) who comes into the ED c/o hematuria. #Hematuria; Resolved, s/p cystoscopy/evaluation of clots/fulguration on 09/17 -Ignacio now draining clear yellow urine; H/H stable, no signs of active bleeding -Will follow up uro recs if pt needs to be discharged with ignacio with outpatient follow up #Acute urinary retention; likely 2/2 Ignacio occlusion w/ clots vs. mechanical occlusion with tumor -No signs of retention -Cont to monitor pt for signs of re-occlusion -await urological input #SUSHMA; likely 2/2 obstruction -Today 2.6; will cont to monitor BMP -Currently on LR @ 75; will add 1L bolus x1 -Avoid nephrotoxic agents #HLD; Stable and diet-controlled. #HTN; Stable. No meds needed at this time. #FEN -LR @ 75; will give 1x bolus -lytes WNL -Regular diet #Ppx DVT: Hold AC, SCDs Dispo -cont to monitor on med-surg Visit type - Emergency Visit Emergency Visit: Yes ED Registration Date: 09/16/18 Care time: The patient presented to the Emergency Department on the above date and was hospitalized for further evaluation of their emergent condition. - New Patient This patient is new to me today: No - Critical Care Critical Care patient: No
[2018-09-19] MEDS: LACTATED RINGERS SOLUTION 1,000 ML IV SCH (02:37)
[2018-09-19 07:35] LABS: HEMATOCRIT 34.6 % (35.4-49); HEMOGLOBIN 11.9 GM/dL (11.7-16.9); MCH 30.2 pg (25.7-33.7); MCHC 34.4 g/dl (32.0-35.9); MEAN CELL VOLUME 87.7 fl (80-96); MEAN PLT VOLUME 8.7 fl (7.5-11.1); PLATELET COUNT 186 K/MM3 (134-434); RBC 3.94 M/mm3 (4.00-5.60); RDW 13.3 % (11.9-15.9)
[2018-09-19 07:59] VITALS: BP 134/85; PULSE 64; TEMP 99.1
[2018-09-19 07:59] LABS: BLOOD UREA NITROGEN 9.1 mg/dL (7-18); CALCIUM 8.6 mg/dL (8.5-10.1); CREATININE 0.7 mg/dL (0.55-1.3); POTASSIUM 4.2 mmol/L (3.5-5.1)
--- NOTE | 2018-09-19 10:17 | DS ---
Physical Exam: SUBJECTIVE: Patient seen and examined. is urinating clear urine, no more clots or suprapubic pain. denies CP, SOB, fever, chills, N/V/C/D OBJECTIVE: Vital Signs Period Temp Pulse Resp BP Sys/[place] Pulse Ox Last 24 Hr 98.4 F-99.1 F 64-72 20-20 111-134/72-85 99 PHYSICAL EXAM GENERAL: The patient is awake, alert, and fully oriented, in no acute distress. HEAD: Normal with no signs of trauma. EYES: PERRL, extraocular movements intact, sclera anicteric, conjunctiva clear. ENT: Ears normal, nares patent, oropharynx clear without exudates, moist mucous membranes. NECK: Trachea midline, full range of motion, supple. LUNGS: Breath sounds equal, clear to auscultation bilaterally, no wheezes, no crackles, no accessory muscle use. HEART: Regular rate and rhythm, S1, S2 without murmur, rub or gallop. ABDOMEN: Soft, nontender, nondistended, normoactive bowel sounds, no guarding, no rebound, no hepatosplenomegaly, no masses. EXTREMITIES: 2+ pulses, warm, well-perfused, no edema. NEUROLOGICAL: Cranial nerves II through XII grossly intact. Normal speech, gait not observed. PSYCH: Normal mood, normal affect. SKIN: Warm, dry, normal turgor, no rashes or lesions noted. LABS Laboratory Results - last 24 hr 09/19/18 09/19/18 05:30 05:30 WBC 5.0 RBC 3.94 L Hgb 11.9 Hct 34.6 L MCV 87.7 MCH 30.2 MCHC 34.4 RDW 13.3 Plt Count 186 MPV 8.7 Sodium 141 Potassium 4.2 Chloride 106 Carbon Dioxide 29 Anion Gap 6 L BUN 9.1 Creatinine 0.7 Est GFR (CKD-EPI)AfAm 125.75 Est GFR (CKD-EPI)NonAf 108.50 Random Glucose 110 H Calcium 8.6 HOSPITAL COURSE: Date of Admission:09/16/18 Date of Discharge: 09/19/18 Admitting diagnosis Hematuria, urine retention Procedures 09/17/18 cysto/evac of clots/fulg of bleeding Pre hospital course 52 yo m w/ PMH bladder Ca (dx apr 2015), HLD who comes into the ED c/o hematuria. Patient states that at approx. PM yesterday evening, he first noticed blood in his urine. Since this time, hehad been urinating every 2 hours and seeing blood every time. The patient associated this symptom with burning on urination for the same period of time. After arrival in the ED, the patient states that he began to urinate every 20 minutes and developed a constant, sharp suprapubic pain without radiation. The patient states that he had a similar episode in 2016 when he was first diagnosed with bladder cancer. Patient denies fevers, chills, SOB, diarrhea. In the ED, the patient was treated with IV acetaminophen and a [address] catheter was inserted. Urology was consulted from the emergency department. They agreed the with above plan and suggested starting CBI if bleeding persisted. On interview, the patient c/o increased suprapubic pain. Palpation of the abdomen found the bladder to be distended above the level of the umbilicus. Esteban was not draining. Catheter was found to be occluded by a presumed clot in the bladder. repeated flushing and irrigating through 2 different lumen were unsuccessful. Contacted Dr. Aceves, who recommended replacing [address]eban with [address]eban. This was done, and the patient endorsed relief of his symptoms. new Esteban was draining sanguineous urine. Subsequent hospital course Admitted to medicine. esteban was placed and irrigated. was unable to start CBI on arrival. Hgb was trended and remained stable not requiring blood products. pt underwent cystoscopy with resolution of hematuria. developed SUSHMA post- operatively likely due to obstruction. which normalized with IVF. spoke wt Dr Tariq and agreed patient can d/c home without esteban. pt instructed to f/u next week. Minutes to complete discharge: 40 Discharge Summary Reason For Visit: HEMATURIA Current Active Problems Hematuria (Acute) Bladder cancer (Chronic) Condition: Fair - Instructions Diet, Activity, Other Instructions: You were admitted to the hospital because you were urinating blood You underwent cystoscopy which cleared out the blood clots and since then the bleeding has stopped Your blood counts have been stable and you did not receive any blood products while you were here Your kidney function went up due to the blockage the clots were causing but since this has been fixed the kidney function returned to normal Use tylenol as needed for pain, avoid taking NSAIDS as this can cause more bleeding (naproxen, ibuprofen, aleive, etc) You need to follow up with urology next week for further treatment and management Follow up with your primary care doctor in 1 week Return to the ER if you start having blood urine with clots, if you start having bladder pain or if you notice you are peeing less. Referrals: Angel Akers MD [Primary Care Provider] - Oliver Nash [Non Staff, Medical] - Disposition: HOME - Home Medications Comprehensive Discharge Medication List: Ambulatory Orders NK [No Known Home Medication] 04/24/16 This patient is new to me today: No Emergency Visit: Yes ED Registration Date: 09/16/18 Care time: The patient presented to the Emergency Department on the above date and was hospitalized for further evaluation of their emergent condition. Critical Care patient: No - Discharge Referral Referred to [facility] No
== END 2018-09-19 12:51 | disposition home or self-care (01) | DRG 988 ==
LOC: JER 04:04 → JERBED 09:19 → J6S 15:30
PROVIDERS: ADMIT Internal Medicine; ATTEND Internal Medicine
PROC: 0T9B8ZX Drainage of Bladder, Via Natural or Artificial Opening Endoscopic, Diagnostic (ICD-10-PCS; 2018-09-17)
PROC: 0T5B8ZZ Destruction of Bladder, Via Natural or Artificial Opening Endoscopic (ICD-10-PCS; principal; 2018-09-17 10:00)
DX: N99.820 Postprocedural hemorrhage of a genitourinary system organ or structure following a genitourinary system procedure (principal); N17.9 Acute kidney failure, unspecified; C67.9 Malignant neoplasm of bladder, unspecified; R33.9 Retention of urine, unspecified; E78.5 Hyperlipidemia, unspecified; R31.0 Gross hematuria; Y83.9 Surgical procedure, unspecified as the cause of abnormal reaction of the patient, or of later complication, without mention of misadventure at the time of the procedure
CPT/HCPCS: 36415; 71045-TC-FY; 80048; 80053; 81003; 82728; 83540; 83550; 83735; 84100; 85027; 85610; 85730; 86850; 86900; 86901; 87086; 93005; 93010; 94760; 99284-25; J0131; J7030